=== PATIENT | male | born 1955 | race Caucasian/White ===

== ENCOUNTER 2023-05-03 15:09 | Emergency (ER) | payer SELFPAY ==
[~2023-05-03] VITALS: Ht 170.2 cm; Wt 75.0 kg
[2023-05-03 15:19] VITALS: O2SAT 99
[2023-05-03 17:00] VITALS: BP 142/70; PULSE 72; RESP 16; TEMP 98.2
== END 2023-05-03 17:10 | disposition home or self-care (01) ==
LOC: ER 15:09
DX: S93.04XA Dislocation of right ankle joint, initial encounter (principal); E11.9 Type 2 diabetes mellitus without complications; W50.2XXA Accidental twist by another person, initial encounter; Y93.89 Activity, other specified; Y92.89 Other specified places as the place of occurrence of the external cause; Y99.8 Other external cause status
CPT/HCPCS: 73610; 73620; 27840; 99284; Z7610 ×3

== ENCOUNTER 2023-05-11 18:06 | Emergency (ER) | payer SELFPAY ==
[~2023-05-11] VITALS: Ht 175.3 cm; Wt 104.3 kg
[2023-05-11 18:43] VITALS: BP 142/80; PULSE 74; RESP 16; TEMP 98.2; O2SAT 96
[2023-05-11] MEDS ORDERED: MUPI15CR11 TP (19:52)
== END 2023-05-11 20:38 | disposition home health service (06) ==
LOC: ER 18:06
DX: S93.04XD Dislocation of right ankle joint, subsequent encounter (principal); Z90.49 Acquired absence of other specified parts of digestive tract; X58.XXXD Exposure to other specified factors, subsequent encounter
CPT/HCPCS: 73600; 99283